=== PATIENT | female | born 1940 | race Caucasian/White ===

== ENCOUNTER → 2016-03-13 | Outpatient (CLI) | payer OTHER, BC | LOC: RAD 01:07 | DX: Z12.31 Encounter for screening mammogram for malignant neoplasm of breast (principal) ==

== ENCOUNTER → 2017-03-15 | Outpatient (CLI) | payer OTHER, BC | LOC: RAD 03-14 01:27 | DX: Z12.31 Encounter for screening mammogram for malignant neoplasm of breast (principal) ==

== ENCOUNTER → 2018-03-15 | Outpatient (CLI) | payer OTHER, BC | LOC: RAD 01:11 | DX: Z12.31 Encounter for screening mammogram for malignant neoplasm of breast (principal) ==

== ENCOUNTER 2019-01-27 06:02 | Emergency (ER) | payer OTHER, BC ==
[~2019-01-27] VITALS: Ht 154.9 cm; Wt 63.5 kg
[2019-01-27] MEDS ORDERED: COQ-1030 MG PO (06:09)
[2019-01-27] MEDS ORDERED: CRESTOR5 MG PO (06:09)
[2019-01-27 06:45] LABS: URINE BILIRUBIN NEGATIVE (Negative); URINE BLOOD NEGATIVE (Negative); URINE COLOR YELLOW; URINE GLUCOSE-RANDOM* NEGATIVE (Negative); URINE KETONES NEGATIVE (Negative); URINE LEUKOCYTES-REFLEX NEGATIVE (Negative); URINE NITRITE-REFLEX NEGATIVE (Negative); URINE PROTEIN (DIPSTICK) NEGATIVE (Negative); URINE SPECIFIC GRAVITY >= 1.030 (1.005-1.035); URINE UROBILINOGEN 0.2 E.U./dl (0.2-1.0)
[2019-01-27 06:47] LABS: URINE CLARITY HAZY
[2019-01-27 06:53] LABS: ABSOLUTE NEUTROPHILS 13.1 thou/uL (1.4-8.2); BASOPHILS 0.6 % (0.0-2.0); EOSINOPHILS 0.5 % (0.0-3.0); HEMATOCRIT 43.5 % (37.0-47.0); HEMOGLOBIN 14.3 gm/dL (12.0-15.0); LYMPHOCYTES 6.4 % (24.0-44.0); MCHC 32.8 g/dL (28.0-37.0); MCV 88.2 fL (80.0-100.0); MONOCYTES 7.1 % (1.0-8.0); PLATELET COUNT 194 thou/uL (150-400); POLYS 85.4 % (36.0-66.0); RBC 4.93 mil/uL (4.20-5.00); RDW 13.6 % (10.5-14.5); WBC 15.4 thou/uL (4.0-11.0)
[2019-01-27 07:04] LABS: CALCIUM 9.9 mg/dL (8.5-10.1); CREATININE 1.1 mg/dL (0.6-1.0); POTASSIUM 4.1 mmol/L (3.5-5.1)
[2019-01-27 07:11] LABS: ALBUMIN 3.4 g/dL (3.4-5.0); TOTAL BILIRUBIN 0.3 mg/dL (<0.1-1.0); TOTAL PROTEIN 8.3 g/dL (6.4-8.2)
[2019-01-27] MEDS ORDERED: IMODIUM A-D2 MG PO (07:40)
[2019-01-27] MEDS ORDERED: BENTYL 20 MG TA20 M1 PO (07:40)
[2019-01-27] MEDS ORDERED: ZOFRAN ODT4 MG PO (07:40)
[2019-01-27 08:01] VITALS: BP 116/42
== END 2019-01-27 08:02 | disposition home or self-care (01) ==
LOC: ER 06:02
PROVIDERS: Emergency Medicine
DX: K52.9 Noninfective gastroenteritis and colitis, unspecified (principal); E78.00 Pure hypercholesterolemia, unspecified; Z88.8 Allergy status to other drugs, medicaments and biological substances; Z87.891 Personal history of nicotine dependence

== ENCOUNTER → 2020-05-03 | Outpatient (CLI) | payer OTHER, BC ==
[~2020-05-03] MED LIST: BENTYL 20 MG TA20 M1 PO; COQ-1030 MG PO; CRESTOR5 MG PO; IMODIUM A-D2 MG PO; ZOFRAN ODT4 MG PO
== END ==
LOC: BC 09:57
PROVIDERS: ATTEND Internal Medicine
DX: Z12.31 Encounter for screening mammogram for malignant neoplasm of breast (principal)